=== PATIENT | male | born 1960 | race Caucasian/White ===

== ENCOUNTER 2021-03-02 09:06 | Observation (INO) | payer BC, OTHER ==
[~2021-03-02] VITALS: Ht 172.7 cm; Wt 96.2 kg
[~2021-03-02 09:06] MED LIST: ACETAMINOPHEN325 M1 PO; ASPIRIN325 PO; CHILDREN'S ASPI81 MG PO; IBUPROFEN 200200 M1 PO; LISINOPRIL10 MG PO; MULTIPLE VITAM1 EAC2 PO; NICOTINE LOZENGE2 MG PO; NORCO 5-325 TA1 EACH PO; PERCOCET PO; PROTONIX40 M1 PO; SORINE 80 MG TA80 M1 PO; VITAMIN C500 M2 PO; VITAMIN D1000 UNI2 PO
[2021-03-02 10:06] VITALS: BP 148/88
[2021-03-02 10:09] LABS: ABSOLUTE NEUTROPHILS 2.5 thou/uL (1.4-8.2); BASOPHILS 0.8 % (0.0-2.0); EOSINOPHILS 2.3 % (0.0-3.0); HEMATOCRIT 41.4 % (42.0-52.0); HEMOGLOBIN 13.8 gm/dL (14.0-18.0); LYMPHOCYTES 33.9 % (24.0-44.0); MCH 30.6 pg (26.0-34.0); MCHC 33.3 g/dL (28.0-37.0); MCV 91.8 fL (80.0-100.0); MONOCYTES 8.7 % (1.0-8.0); PLATELET COUNT 280 thou/uL (150-400); POLYS 54.3 % (36.0-66.0); RBC 4.51 mil/uL (4.50-6.00); RDW 12.6 % (10.5-14.5); WBC 4.7 thou/uL (4.0-11.0)
[2021-03-02 10:25] LABS: CALCIUM 8.9 mg/dL (8.5-10.1); CREATININE 0.7 mg/dL (0.7-1.3); POTASSIUM 4.3 mmol/L (3.5-5.1)
[2021-03-02 10:30] LABS: APTT 29.6 Seconds (24.5-32.8); INR 0.94; PROTIME 10.3 Seconds (10.5-12.1)
[2021-03-02 10:31] LABS: ALBUMIN 3.7 g/dL (3.4-5.0); TOTAL BILIRUBIN 0.7 mg/dL (0.2-1.0); TOTAL PROTEIN 7.3 g/dL (6.4-8.2)
[2021-03-02] MEDS ORDERED: SORINE 80 MG TA80 MG PO (10:47)
[2021-03-02] MEDS ORDERED: LIPITOR40 MG PO (11:04)
[2021-03-02] MEDS ORDERED: ZOLOFT25 MG PO (11:06)
[2021-03-02] MEDS ORDERED: PROAIR HFA8.5 GM INH (11:07)
[2021-03-02] MEDS ORDERED: XARELTO20 MG PO (11:07)
[2021-03-02] MEDS ORDERED: LISINOPRIL5 MG PO (11:10)
[2021-03-02 17:00] VITALS: BP 151/99
[2021-03-02 19:49] VITALS: BP 136/93
--- NOTE | 2021-03-02 22:01 | NUR ---
PT UP FROM CIO, AT SIDE, PT A AND O, C.O PAIN TO CHEST DOES NOT RADIATE, NO SOA, NO OTHER CARDIO SYMPTOMS, ORIENTED TO ROOM, BEDREST TIME FRAME, HOB ELEVATION, URINAL, PT VERBALLY UNDERSTOOD ALL INSTRUCTIONS. PT HAS CALL LIGHT WITH IN REACH, SITE IS CLEAN DRY AND INTACT, NO SWELLING. PT HAS NO CONCERNS AT THIS TIME.
[2021-03-03 00:32] VITALS: BP 141/85
[2021-03-03 05:03] VITALS: BP 131/80
[2021-03-03 07:50] VITALS: BP 141/95
[2021-03-03 10:31] VITALS: BP 141/95
--- NOTE | 2021-03-03 10:53 | NUR ---
TOOK OVER CARE OF THIS PATIENT AT 0700. PATIENT RESTING IN BED DURING REPORT; GROIN HANDOFF COMPLETED WITH STEPHANIE ALVARADO. SITE IS CDI, NO SWELLING NOTED, NO HARDNESS OR LUMP NOTED. PT DENIES ANY NEEDS AT THIS TIME. SPOKE WITH CARDIOLOGY REGARDING DISCHARGE. PATIENT AGREEABLE TO DISCHARGE PLAN AND FOLLOW UP CARE.
--- NOTE | 2021-03-28 12:29 | P ---
[facility] [place] [address] PROCEDURE REPORT Name: SHON ESPINOZA Room #: 205-P [facility] Con Becerra#: [id number] Admission: 03/02/21 Attend Phys: West Kevin MD Discharge: 03/03/21 Date of : 56 Report #: [id number] THIS REPORT FOR: cc: Angel Mckeon MD, Dean L. MD Couchonnal,West Irwin MD ~ DATE OF SERVICE: 03/02/2021 PROCEDURES PERFORMED: 1. Atrial fibrillation ablation, CPT code 18106. 2. 3D mapping, CPT code 70463. 3. Intracardiac echo, CPT code 99040. 4. Second pathway ablation -- CPT code 53526. DESCRIPTION OF PROCEDURE: The patient is a 60-year-old with history of AFib, atrial flutter, here for ablation. ANESTHESIA: The patient underwent general anesthesia with no anesthesia-related complications. DESCRIPTION OF PROCEDURE: The patient underwent informed consent. He was brought to the EP laboratory in a fasting and nonsedated state, prepped and draped in a standard fashion. I obtained access to the right femoral vein x3, placing an 8, 9 and 7-Comor[place] short sheath using the modified Seldinger technique. Under fluoroscopy, I placed a decapolar catheter into the coronary sinus with ease. At baseline, the patient was in sinus rhythm. The patient was systemically heparinized and a transseptal was performed using an SL1 sheath and a [place] needle and this was straightforward and exchanged for the cryosheath and placed the Lasso catheter in the left atrium and a 3D voltage map of the left atrium was created. I then started isolating the veins. Left superior pulmonary vein underwent a 4-minute freeze, isolating at 80 seconds. Left inferior pulmonary vein underwent 4-minute freeze, isolating at 60 seconds. Right superior pulmonary vein underwent a 100 second freeze and isolated at 50 seconds and I came off as attempts were getting cold. I then did an additional 3-minute freeze. The right inferior pulmonary vein underwent a 4-minute freeze and isolated at 120 seconds. There was never any phrenic nerve compromise while freezing the right-sided veins. 3D voltage map was then created and showed that all veins were isolated. ATRIAL FLUTTER ABLATION: The patient was then prepped for right-sided atrial flutter ablation using a ramp sheath and 8 mm ablation catheter. Ablation was performed at 70 niño, 60 degrees and a continuous drag lesion was performed along the cavotricuspid isthmus at 6 o'clock. Preablation, the transisthmus conduction time was 60 milliseconds. Post-ablation, it was 135 milliseconds with an activation sequence consistent with bidirectional block. Post-ablation, the patient was in sinus rhythm. There is no pericardial effusion. The [address] [address] PROCEDURE REPORT Name: SHON ESPINOZA Room #: 205-P [facility] Con Becerra#: [id number] Admission: 03/02/21 Attend Phys: West Kevin MD Discharge: 03/03/21 Date of : 56 Report #: [id number] procedure was concluded. There were no procedure-related complications. CONCLUSION: 1. Successful AFib ablation and isolation of the pulmonary veins. 2. Successful atrial flutter ablation with bidirectional block. <ELECTRONICALLY SIGNED> By: West Kevin MD 03/28/21 1229 [id number] West Kevin MD /nt
== END 2021-03-03 11:01 | disposition home or self-care (01) ==
LOC: CATH 09:06 → 2N 16:51
PROVIDERS: ADMIT Internal Medicine Cardiovascular Disease; ATTEND Internal Medicine Cardiovascular Disease
DX: I48.92 Unspecified atrial flutter (principal); I48.0 Paroxysmal atrial fibrillation; I10 Essential (primary) hypertension; M54.9 Dorsalgia, unspecified; G89.29 Other chronic pain; Z20.822 Contact with and (suspected) exposure to COVID-19; Z79.01 Long term (current) use of anticoagulants; Z79.899 Other long term (current) drug therapy
CPT/HCPCS: 62110; 62900; 65020; 70005